=== PATIENT | female | born 1945 | race Caucasian/White ===

== ENCOUNTER 2020-09-27 16:13 | Emergency (ER) | payer MEDICARE ==
[2020-09-27] MEDS ORDERED: GOOD NEIGHBOR200 M3 PO (16:53)
[2020-09-27] MEDS ORDERED: NEXIUM 24HR20 M2 PO (16:54)
[2020-09-27] MEDS ORDERED: ASPIRIN 32325 MG/TAB PO (16:56)
[2020-09-27] MEDS ORDERED: AZO BLADDER CO300 MG PO (16:57)
[2020-09-27] MEDS ORDERED: CRANBERRY 100 M1 SGL (16:58)
[2020-09-27 17:38] LABS: URINE APPEARANCE HAZY; URINE BILIRUBIN NEGATIVE (NEGATIVE); URINE BLOOD NEGATIVE (NEGATIVE); URINE COLOR YELLOW; URINE GLUCOSE NEGATIVE (NEGATIVE); URINE KETONE NEGATIVE (NEGATIVE); URINE LEUKOCYTE ESTERASE TRACE (NEGATIVE); URINE NITRATE NEGATIVE (NEGATIVE); URINE PROTEIN(semi-quant) TRACE mg/dL (NEGATIVE); URINE UROBILINOGEN NORMAL (NORMAL)
[2020-09-27 19:40] VITALS: BP 163/86
== END 2020-09-27 19:40 | disposition home or self-care (01) ==
LOC: ED 16:13
PROVIDERS: Nurse Practitioner
DX: G89.29 Other chronic pain (principal); M54.5 Low back pain; M54.16 Radiculopathy, lumbar region; Z88.6 Allergy status to analgesic agent
CPT/HCPCS: J1885

== ENCOUNTER → 2020-10-06 | Outpatient (CLI) | payer MEDICARE ==
[~2020-10-06] MED LIST: ASPIRIN 32325 MG/TAB PO; AZO BLADDER CO300 MG PO; CRANBERRY 100 M1 SGL; GOOD NEIGHBOR200 M3 PO; NEXIUM 24HR20 M2 PO
== END ==
LOC: RAD 16:20
DX: M54.17 Radiculopathy, lumbosacral region (principal)

== ENCOUNTER → 2021-01-10 | Outpatient (CLI) | payer MEDICARE ==
[2021-01-10 15:24] LABS: BASO # 0.06 K/mm3 (0.02-0.10); EOS # 0.19 K/mm3 (0.04-0.40); EOS % 3.2 % (1.0-5.0); HEMOGLOBIN 13.1 g/dL (12.5-16.0); LYMPH# 1.72 K/mm3 (1.50-4.00); MEAN CELL VOLUME 101 fl (78-100); MEAN CORPUSCULAR HEMOGLOBIN 32 pg (27-31); MEAN CORPUSCULAR HGB CONC 31 g/dL (33-37); MEAN PLATELET VOLUME 8.8 fl (7.4-10.4); MONO # 0.39 K/mm3 (0.20-0.80); PLATELET COUNT 347 K/mm3 (130-400); RED BLOOD COUNT 4.15 M/mm3 (4.10-5.30)
[2021-01-10 15:34] LABS: POTASSIUM 4.6 mmol/L (3.5-5.1)
[2021-01-10 15:35] LABS: CALCIUM 9.5 mg/dL (8.3-10.5)
[2021-01-10 15:37] LABS: TOTAL PROTEIN 7.2 g/dL (6.2-8.1)
[2021-01-10 15:38] LABS: TOTAL BILIRUBIN 0.2 mg/dL (0.2-1.2)
[2021-01-10 16:39] LABS: ERYTHROCYTE SEDIMENTATION RATE 23 mm/hr (0-30)
== END ==
LOC: LAB 14:55
PROVIDERS: Internal Medicine
DX: M81.0 Age-related osteoporosis without current pathological fracture (principal); D64.9 Anemia, unspecified; R20.2 Paresthesia of skin; Z86.79 Personal history of other diseases of the circulatory system

== ENCOUNTER → 2021-01-23 | Outpatient (CLI) | payer MEDICARE | LOC: MAMMO 10:30 → RAD 12:58 → MAMMO 13:00 | DX: S32.009A Unspecified fracture of unspecified lumbar vertebra, initial encounter for closed fracture (principal) ==

== ENCOUNTER → 2021-08-25 | Outpatient (CLI) | payer MEDICARE ==
[2021-08-25 17:08] LABS: BASO # 0.04 K/mm3 (0.02-0.10); EOS # 0.03 K/mm3 (0.04-0.40); EOS % 0.4 % (1.0-5.0); HEMATOCRIT 40.1 % (37.0-47.0); HEMOGLOBIN 12.5 g/dL (12.5-16.0); LYMPH# 1.44 K/mm3 (1.50-4.00); MEAN CELL VOLUME 99 fl (78-100); MEAN CORPUSCULAR HEMOGLOBIN 31 pg (27-31); MEAN CORPUSCULAR HGB CONC 31 g/dL (33-37); MEAN PLATELET VOLUME 9.3 fl (7.4-10.4); MONO # 0.38 K/mm3 (0.20-0.80); NEU # 4.85 K/mm3 (1.40-6.50); PLATELET COUNT 295 K/mm3 (130-400); RED BLOOD COUNT 4.07 M/mm3 (4.10-5.30); WHITE BLOOD COUNT 6.8 K/mm3 (4.8-10.8)
[2021-08-29 16:04] LABS: A/G RATIO (PEP) 0.96 (()); BETA GLOBULINS (PEP) 1.1 g/dL (0.7-1.2)
== END ==
LOC: LAB 16:19
PROVIDERS: Internal Medicine
DX: S39.012A Strain of muscle, fascia and tendon of lower back, initial encounter (principal); S29.019A Strain of muscle and tendon of unspecified wall of thorax, initial encounter; M81.0 Age-related osteoporosis without current pathological fracture; M47.896 Other spondylosis, lumbar region